=== PATIENT | male | born 1990 | race Caucasian/White ===

== ENCOUNTER 2016-12-19 13:31 | Emergency (ER) | payer OTHER ==
[~2016-12-19] VITALS: Ht 165.1 cm; Wt 76.0 kg
[~2016-12-19 13:31] MED LIST: AMOX500C3 PO; AMPH20CA3 PO; BXN500 PO; EFFSR75 PO; MULT-506 PO
[2016-12-19 13:42] VITALS: TEMP 36.8; Ht 165.1 cm; Wt 76.0 kg
[2016-12-19] MEDS ORDERED: ACETAMINOPHEN 500 MG TAB PO STA (13:59)
[2016-12-19] MEDS ORDERED: MULTTAB5 PO (14:07)
--- NOTE | 2016-12-19 14:57 | DIAGNOSTIC IMAGING REPORT ---
CT HEAD WITHOUT CONTRAST (CT) CLINICAL HISTORY: headaches, blurred vision COMPARISON STUDY: No previous studies for comparison. TECHNIQUE: Axial CT of the brain is performed from the vertex to the skull base. IV contrast was not administered for this examination. A dose lowering technique was utilized adhering to the principles of ALARA. CT DOSE: 638.56 mGycm FINDINGS: No intra or extra-axial mass lesions are visualized. There is no CT evidence of acute cortical infarction. There is no evidence of midline shift. There is no acute hemorrhage. No calvarial fractures are visualized. There is a giant cisterna magna There is no evidence of pathologic ventricular dilatation. Inflammatory changes are present within the right ethmoid and frontal sinuses. IMPRESSION: 1. Inflammatory changes within the right ethmoid and frontal sinuses 2. Giant cisterna magna 3. Otherwise unremarkable noncontrast head CT. Electronically signed by: Jose Morrissey M.D. 12/19/2016 2:56 PM Dictated Date/Time: 12/19/2016 2:55 PM
[2016-12-19] MEDS ORDERED: AMOX875T PO (15:24)
[2016-12-19] MEDS ORDERED: METH4PAK PO (15:24)
--- NOTE | 2016-12-19 15:26 | EMERGENCY ROOM VISIT NOTE ---
History First contact with patient: 13:44 Chief Complaint: HEADACHE Stated Complaint: HUERTAS, DIZZY, VISUAL DISTURBANCE History of Present Illness The patient is a 25 year old male who presents to the Emergency Room with complaints of a headache which the patient developed yesterday. He states that he had a gradual onset of a worsening headache with associated blurred vision and nausea. He denies any vomiting. He also reports that his heart rate felt elevated yesterday. He states his headache has improved today and symptoms are mild at this time. He rates his current discomfort a 5/10. He did not take any medication for the pain. He states that he has had headaches in the past, but has never had vision changes or nausea associated with the headaches. He was seen at [facility] and sent here for further evaluation. The patient denies any neck pain/stiffness, fevers, chest pain or shortness of breath. He denies any numbness or weakness. Review of Systems A complete 10 point review of systems was reviewed with the patient with pertinent positives and negatives as per history of present illness. All else were negative. Past Medical/Surgical History Medical Problems: (1) ADD (attention deficit disorder) (2) Depression Family History Diabetes mellitus FH: cancer Hypertension Social History Smoking Status: Current Every Day Smoker Alcohol Use: none Occupation Status: student Current/Historical Medications Scheduled Amoxicillin & Pot Clavulanate (Augmentin 875-125 mg), 1 TAB PO BID Methylprednisolone (Medrol Dosepak), 0 PO DAILY Multiple Vitamins W/ Minerals (Centrum), 1 TAB PO DAILY Physical Exam Vital Signs Date Time Temp Pulse Resp B/P (MAP) Pulse Ox O2 Delivery O2 Flow Rate FiO2 12/19/16 13:42 36.8 79 18 118/83 97 Room Air Physical Exam VITALS: Vitals are noted on the nurse's note and reviewed by myself. Vital signs stable. GENERAL: This is a 25 red male, in no acute distress, nondiaphoretic, well- developed well-nourished. HEAD: Normocephalic atraumatic. EARS: External auditory canals clear, tympanic membranes pearly wiggins without erythema or effusion bilaterally. EYES: Pupils equal round and reactive to light and accommodation. Conjunctivae without injection, sclerae without icterus. Extraocular movements intact. NOSE: Patent, turbinates without inflammation or discharge. MOUTH: Mucous membranes moist. Tonsils are not enlarged. Pharynx without erythema or exudate. NECK: Supple without nuchal rigidity. No lymphadenopathy. No meningismus. HEART: Regular rate and rhythm without murmurs gallops or rubs. LUNGS: Clear to auscultation bilaterally without wheezes, rales or rhonchi. MUSCULOSKELETAL: Strength 5/5 throughout. NEURO: Patient was alert and oriented to person place and time. Normal sensation to light and sharp touch. Deep tendon reflexes 2+ throughout. No focal neurological deficits. Normal finger to nose testing. Negative Romberg and pronator drift. Medical Decision & Procedures ER Provider Diagnostic Interpretation: CT HEAD WITHOUT CONTRAST (CT) CLINICAL HISTORY: headaches, blurred vision COMPARISON STUDY: No previous studies for comparison. TECHNIQUE: Axial CT of the brain is performed from the vertex to the skull base. IV contrast was not administered for this examination. A dose lowering technique was utilized adhering to the principles of ALARA. CT DOSE: 638.56 mGycm FINDINGS: No intra or extra-axial mass lesions are visualized. There is no CT evidence of acute cortical infarction. There is no evidence of midline shift. There is no acute hemorrhage. No calvarial fractures are visualized. There is a giant cisterna magna There is no evidence of pathologic ventricular dilatation. Inflammatory changes are present within the right ethmoid and frontal sinuses. IMPRESSION: 1. Inflammatory changes within the right ethmoid and frontal sinuses 2. Giant cisterna magna 3. Otherwise unremarkable noncontrast head CT. Medications Administered Medications (Trade) Dose Ordered Sig/Jose Angel Route Start Time Stop Time Status Last Admin Dose Admin Acetaminophen (Tylenol Tab) 1,000 mg NOW STAT PO 12/19/16 13:59 12/19/16 14:00 DC 12/19/16 14:37 1,000 MG ECG Indication: palpitations Rate (beats per minute): 56 Rhythm: sinus bradycardia Findings: no acute ischemic change, no ectopy Comparison ECG Date: no prior available Medical Decision The differential diagnosis includes acute intracranial bleed, meningitis, encephalitis, mass or mass effect, sinusitis, infection, tumor, headache, temporal arteritis and carbon monoxide exposure, and migraine. The patient is a 25-year-old male who presents today complaining of a headache which began yesterday and has been improving today. Neuro exam is unremarkable. There is no evidence of meningitis on exam. CT of the head was performed and did show inflammatory changes of the right ethmoid and frontal sinuses. There was also incidental finding of giant cisterna magna which does not appear to be acute and is not likely to be contributing to the patient's symptoms. He was instructed to follow-up with [facility] regarding this finding. EKG was unremarkable. Patient was placed on Augmentin and Medrol Dosepak for sinusitis. The patient's case was reviewed with Dr. Erickson, ED attending physician, who agreed with my assessment and treatment plan. Based on the patient's presentation and work up, I feel the patient is stable for outpatient treatment. The patient was educated to return to the emergency department for any worsening of their current condition or new/concerning symptoms. He will follow up with [facility]. Medication Reconcilliation Current Medication List: was personally reviewed by me Blood Pressure Screening Patient's blood pressure: Normal blood pressure Impression Primary Impression: Sinusitis, acute Departure Information Dispostion Home / Self-Care Condition GOOD Prescriptions Methylprednisolone (MEDROL DOSEPAK) 4 Mg Nolan 0 PO DAILY, #1 PKT Prov: Trang Soler .MAURISIO 12/19/16 Amoxicillin & Pot Clavulanate (Augmentin 875-125 mg) 1 Tab Tab 1 TAB PO BID for 10 Days, #20 TAB Prov: Trang Soler PA-C 12/19/16 Referrals [facility] (PCP) Patient Instructions My [facility] Additional Instructions You were seen today for a headache. CT showed evidence of a sinus infection. You were prescribed Augmentin to be taken twice daily as prescribed. This is an antibiotic. All antibiotics have the potential to cause diarrhea. Stop this medication and contact a medical provider if you were to develop any significant adverse side effects including: wheezing, shortness of breath, passing out, vomiting, or a diffuse rash. Always take antibiotics as directed and COMPLETE the ENTIRE course regardless of the improvement of your symptoms. You have been prescribed a Medrol Dosepak. This is a steroid which will help decrease your inflammation, redness, and itch. Take the medicine as prescribed. Take the ENTIRE 6 day course of the steroids. For pain control, you can use the following [id number] medicines (if >12 yo): - Regular strength (325mg/tab) Tylenol (acetaminophen) 2 tabs every 4-6 hours as needed. Do not exceed 12 tablets in a 24 hour period. Avoid taking more than 4 grams (4000 mg) of Tylenol per day. This includes any other sources of acetaminophen you may take on a regular basis. - Regular strength (200 mg/tab) Advil (ibuprofen) 1-2 tabs every 4-6 hours as needed. Do not exceed a dose of 3200 mg per day. Follow up with S next week for a recheck. Return here for worsening headache, high fevers, neck pain/stiffness, or any other new/concerning symptoms. Problem Qualifiers Primary Impression: Sinusitis, acute Sinusitis location: unspecified location Recurrence: non-recurrent Qualified Codes: J01.90 - Acute sinusitis, unspecified
[2016-12-19 15:46] VITALS: BP 113/68; PULSE 53; O2SAT 96
== END 2016-12-19 15:47 | disposition home or self-care (01) ==
LOC: C.EDB 13:34
DX: J01.90 Acute sinusitis, unspecified (principal); R00.1 Bradycardia, unspecified; F90.9 Attention-deficit hyperactivity disorder, unspecified type; F32.9 Major depressive disorder, single episode, unspecified; F17.200 Nicotine dependence, unspecified, uncomplicated; Z79.899 Other long term (current) drug therapy; Z83.3 Family history of diabetes mellitus; Z80.9 Family history of malignant neoplasm, unspecified; Z82.49 Family history of ischemic heart disease and other diseases of the circulatory system